=== PATIENT | female | born 1985 | race Caucasian/White ===

== ENCOUNTER 2017-12-25 00:58 | Inpatient (IN) ==
[2017-12-25] MEDS ORDERED: Zolpidem Tartrate 5 MG Tablet PO PRN (02:28)
[2017-12-25] MEDS ORDERED: Morphine Inj 4 MG/ML Vial IV.PUSH PRN (02:34)
[2017-12-25 02:43] LABS: Baso % (Auto) 0.3 % (0.0-2.0); Eos # (Auto) 0.1 th/mm3 (0.0-0.4); Eos % (Auto) 0.6 % (0.0-4.0); Hematocrit 36.5 % (35.0-46.0); Hemoglobin 12.3 gm/dL (11.6-15.3); Lymph # (Auto) 1.2 th/mm3 (1.0-4.8); Lymph % (Auto) 8.9 % (9.0-44.0); Mean Corpuscular HGB Conc 33.6 % (32.0-36.0); Mean Corpuscular Hemoglobin 29.8 pg (27.0-34.0); Mean Corpuscular Volume 88.6 fL (80.0-100.0); Mono # (Auto) 0.5 th/mm3 (0.0-0.9); Mono % (Auto) 3.4 % (0.0-8.0); Neut # (Auto) 11.9 th/mm3 (1.8-7.7); Neut % (Auto) 86.8 % (16.0-70.0); Platelet Count 159 th/mm3 (150-450); Red Blood Count 4.12 mil/mm3 (4.00-5.30); Red Cell Distribution Width 13.3 % (11.6-17.2); White Blood Count 13.7 th/mm3 (4.0-11.0)
--- NOTE | 2017-12-25 02:45 | P.HPOB ---
History of Present Illness Service: Obstetric Primary Care Physician: UNKNOWN Dr. Moseley Chief Complaint: Back pain History of Present Illness: Patient is 32-year-old white female at 23-[address] Moseley at the [facility] and presents with worsening left back pain for the last 24-36 hours, she left a urine sample with the clinic earlier today has not received results and was put on p.o. Keflex however she had nausea and vomiting she took 1 dose of the medication and then with the second dose she threw that up and has been throwing up since, she denies vaginal bleeding or leakage of fluid. Baby is active. heart tones within normal limits and initial strip reactive for 23-weeks. Patient does describe shaking chills but no fever Weeks Gestation:: 23 Para: 2 : 4 Total # of Miscarriage(s): 1 Review of Systems All other systems reviewed negative except as stated in HPI Constitutional: Reports body ache(s), Reports chills, Reports night sweats Gastrointestinal: Reports abdominal pain Genitourinary: Reports side pain Musculoskeletal: Reports back pain PMFSH - Tobacco History Tobacco Use In Past 30 Days: No Smoking Status: Never smoker - Alcohol History How Often Do You Have a Drink Containing Alcohol: Never - Substance Use History Substance History: No History of Abuse - Travel History History of Recent Travel: No Recent Travel in the [place] Within the Last 8 Weeks: No Recent Travel Out of the Country Within the Last 8 Weeks: No Medications and Allergies Active Medications: Active Medications Acetaminophen (Tylenol) 650 mg PO Q4H PRN PRN Reason: PAIN SCALE 1 TO 5 Lactated Ringer's (Lr 1000 Ml Inj) 1,000 mls @ 100 mls/hr IV.CONT .Q10H [facility] Cefazolin Sodium 2,000 mg/ (Sodium Chloride) 100 mls @ 200 mls/hr IV.SIG Q8HR [facility] Stop: 12/28/17 05:59 Morphine Sulfate (Morphine Inj) 4 mg IV.PUSH Q4H PRN PRN Reason: Acute Pain Ondansetron HCl (Zofran Inj) 4 mg IV.PUSH Q6H PRN PRN Reason: NAUSEA OR VOMITING Oxycodone/Acetaminophen (Percocet 5/325 Mg) 1 tab PO Q4H PRN PRN Reason: ABDOMINAL PAIN Sodium Chloride (Ns Flush) 2 ml IV.FLUSH PRN PRN PRN Reason: FLUSH AFTER USING IV ACCESS Sodium Chloride (Ns Flush) 2 ml IV.FLUSH BID RAFAEL Zolpidem Tartrate (Ambien) 5 mg PO HS PRN PRN Reason: SLEEP Allergies Allergy/AdvReac Type Severity Reaction Status Date / Time No Known Allergies Allergy Verified 12/25/17 02:03 Home Medications Medication Instructions Recorded Confirmed Type PNV cmb#95-ferrous fumarate-FA 1 tab PO DAILY 12/25/17 12/25/17 History [] acetaminophen [Acetaminophen Extra 2 tab PO Q6HR PRN 12/25/17 12/25/17 History Strength] cephalexin 500 mg PO QID 12/25/17 12/25/17 History pumpkin seed extract-soy germ [Azo 2 tab PO TID 12/25/17 12/25/17 History Bladder Control] Exam Vital signs: Vital Signs 12/25/17 01:21 Temperature 97.9 F Pulse Rate 109 H Respiratory Rate 18 Blood Pressure 125/76 Intake & Output 12/24/17 12/24/17 12/25/17 06:59 18:59 06:59 Weight 81.647 kg Narrative: GENERAL: Well-nourished, well-developed patient. SKIN: Warm and dry. HEAD: Normocephalic and atraumatic. EYES: No scleral icterus. No injection or drainage. ENT: No nasal drainage noted. Mucous membranes pink. Airway patent. NECK: Supple, trachea midline. No JVD. CARDIOVASCULAR: Regular rate and rhythm without murmurs, gallops, or rubs. RESPIRATORY: Breath sounds equal bilaterally. No accessory muscle use. BREASTS: Bilateral exam showed no masses , no retractions, no nipple discharge. ABDOMEN/GI: Abdomen soft, non-tender, bowel sounds present, no rebound, no guarding Gravid to [23-] weeks size Fundal Height: [23-] GENITOURINARY: Membranes: [intact ] Uterine Contractions: [none-] FHT's: 145 EXTREMITIES: No cyanosis or edema. BACK: Nontender without obvious deformity. + left CVA tenderness. NEUROLOGICAL: Awake and alert. Motor and sensory grossly within normal limits. Five out of 5 muscle strength in all muscle groups. Normal speech. Results - Labs CBC & Chem 7: 12/25/17 02:07 12/25/17 02:07 Labs: OB ED urine dip shows positive nitrites protein large blood and leukocytes Caprini VTE Risk Assessment Caprini VTE Risk Assessment: No/Low Risk (score <= 1) Caprini Risk Assessment Model: Point Value = 1 Point Value = 2 Point Value = 3 Point Value = 5 Age 41-60 Minor surgery BMI > 25 kg/m2 Swollen legs Varicose veins or History of unexplained or recurrent spontaneous Oral contraceptives or hormone replacement Sepsis (< 1 month) Serious lung disease, including pneumonia (< 1 month) Abnormal pulmonary function Acute myocardial infarction Congestive heart failure (< 1 month) History of inflammatory bowel disease Medical patient at bed rest Age 61-74 Arthroscopic surgery Major open surgery (> 45 min) Laparoscopic surgery (> 45 min) Malignancy Confined to bed (> 72 hours) Immobilizing plaster cast Central venous access Age >= 75 History of VTE Family history of VTE Factor V Leiden Prothrombin [id number] Lupus anticoagulant Anticardiolipin antibodies Elevated serum homocysteine Heparin-induced thrombocytopenia Other congenital or acquired thrombophilia Stroke (< 1 month) Elective arthroplasty Hip, pelvis, or leg fracture Acute spinal cord injury (< 1 month) Prophylaxis Regimen: Total Risk Factor Score Risk Level Prophylaxis Regimen 0-1 Low Early ambulation 2 Moderate Order ONE of the following: *Sequential Compression Device (SCD) *Heparin 5000 units SQ BID 3-4 Higher Order ONE of the following medications: *Heparin 5000 units SQ TID *Enoxaparin/Lovenox 40 mg SQ daily (WT < 150 kg, CrCl > 30 mL/min) *Enoxaparin/Lovenox 30 mg SQ daily (WT < 150 kg, CrCl > 10-29 mL/min) *Enoxaparin/Lovenox 30 mg SQ BID (WT < 150 kg, CrCl > 30 mL/min) AND/OR *Sequential Compression Device (SCD) 5 or more Highest Order ONE of the following medications: *Heparin 5000 units SQ TID (Preferred with Epidurals) *Enoxaparin/Lovenox 40 mg SQ daily (WT < 150 kg, CrCl > 30 mL/min) *Enoxaparin/Lovenox 30 mg SQ daily (WT < 150 kg, CrCl > 10-29 mL/min) *Enoxaparin/Lovenox 30 mg SQ BID (WT < 150 kg, CrCl > 30 mL/min) AND *Sequential Compression Device (SCD) Assessment and Plan - Diagnosis (1) Pyelonephritis affecting in second trimester Code(s): O23.02 - Infections of kidney in , second trimester Status: Acute (2) 23 weeks gestation of Code(s): Z3A.23 - 23 weeks gestation of Status: Acute - Plan This multiparous patient is 23-24 weeks with pyelonephritis, she has significant CVA tenderness and back pain along with positive urinalysis with chills and rigor. No other obstetric issue noted. heart tones within normal limits. Plan patient put the patient on IV Kefzol 2 gm q. 8 , IV antiemetics, IV fluid hydration. Plan 36- 48 hours IV antibiotics minimum
[2017-12-25 02:54] LABS: Bacteria,Urine Rare /hpf; Bilirubin,Urine Negative (Negative); Clarity,Urine Hazy (Clear); Color,Urine Amber (Yellw/Straw); Glucose,Urine (UA) Negative (Negative); Leukocyte Esterase,Urine Trace (Negative); Mucus,Urine Few /lpf (Occasional); Nitrite,Urine Positive (Negative); Specific Gravity,Urine 1.011 (1.002-1.035); Squamous Epithelial Cell,Urine 2 /hpf (0-5); Urobilinogen,Urine 4 or Greater mg/dL (Less than 2)
[2017-12-25] MEDS: Acetaminophen 325 MG Tablet PO PRN ×2 (03:01→15:10)
[2017-12-25 03:11] LABS: Alkaline Phosphatase 78 U/L (45-117); Total Protein 7.5 g/dL (6.4-8.2)
[2017-12-25 03:17] LABS: Alanine Aminotransferase 30 U/L (10-53); Albumin 3.1 g/dL (3.4-5.0); Anion Gap 11 meq/L (5-15); Aspartate Aminotransferase 26 U/L (15-37); Blood Urea Nitrogen 12 mg/dL (7-18); Calcium 9.1 mg/dL (8.5-10.1); Carbon Dioxide 24.9 meq/L (21.0-32.0); Chloride 104 meq/L (98-107); Glomerular Filtration Rate 79 mL/min (>89); Glucose,Random 97 mg/dL (74-106); Sodium 140 meq/L (136-145)
[2017-12-25 03:20] LABS: Potassium 3.9 meq/L (3.5-5.1)
[2017-12-25] MEDS: ceFAZolin 2 GM Premix Inj 2 GM/50 ML PIGGYBACK IV.SIG SCH ×3 (05:38→21:48)
[2017-12-25] MEDS ORDERED: ceFAZolin Inj 2,000 MG in Sodium Chlor 0.9% Inj 80 ML IV.SIG SCH (06:00)
--- NOTE | 2017-12-25 08:51 | P.OBANTE ---
Subjective Interval History: Had nausea overnight. Now feels better and requesting diet. She does not feel like she had a fever overnight since admission. Back pain is improved. Good fm, no vb or ctx/lof. Objective Vital Signs and I&O: Vital Signs 12/25/17 01:21 12/25/17 03:05 12/25/17 05:00 Temperature 97.9 F Pulse Rate 109 H 100 H Respiratory Rate 18 Blood Pressure 125/76 123/80 12/25/17 05:39 12/25/17 05:47 12/25/17 06:44 Temperature 98.7 F Pulse Rate 111 H Respiratory Rate 18 Blood Pressure 99/53 L 12/25/17 07:49 Temperature 98.8 F Pulse Rate 102 H Respiratory Rate 16 Blood Pressure 103/57 L Intake & Output 12/24/17 12/25/17 12/25/17 18:59 06:59 18:59 Intake Total 1050 / 1050 Balance 1050 / 1050 Weight 81.647 kg Intake: IV 1050 / 1050 LR 1000 mL Inj 1,000 ML @ 100 1000 / 1000 mls/hr IV.CONT .Q10H [facility] Rx#: [id number] Ancef 2 GM Premix Inj 2 gm In 50 / 50 50 ml @ 100 mls/hr IV.SIG Q8H [facility]EL Rx#:[id number] Lab and Micro Results: Laboratory Results - last 24 hr 12/25/17 12/25/17 12/25/17 01:35 02:07 02:07 WBC 13.7 H RBC 4.12 Hgb 12.3 Hct 36.5 MCV 88.6 MCH 29.8 MCHC 33.6 RDW 13.3 Plt Count 159 MPV 8.0 Neut % (Auto) 86.8 H Lymph % (Auto) 8.9 L Lewis % (Auto) 3.4 Eos % (Auto) 0.6 Baso % (Auto) 0.3 Neut # (Auto) 11.9 H Lymph # (Auto) 1.2 Lewis # (Auto) 0.5 Eos # (Auto) 0.1 Baso # (Auto) 0.0 WBC Differential . Differential Comment Auto diff final Sodium 140 Potassium 3.9 Chloride 104 Carbon Dioxide 24.9 Anion Gap 11 BUN 12 Creatinine 0.83 Estimated GFR 79 L POC Glucose Random Glucose 97 Calcium 9.1 Total Bilirubin 0.4 AST 26 ALT 30 Alkaline Phosphatase 78 Total Protein 7.5 Albumin 3.1 L Urine Color Marjorie Urine Clarity Hazy H Urine pH 7.0 Ur Specific [place] 1.011 Urine Protein 30 H Urine Glucose (UA) Negative Urine Ketones Trace H Urine Occult Blood Large H Urine Nitrate Positive H Urine Bilirubin Negative Urine Urobilinogen 4 or greater Ur Leukocyte Esterase Trace H Urine RBC Urine WBC 41 H Ur Squamous Epith Cells 2 Urine Bacteria Rare H Urine Mucus Few H Micro UA Comment Culture indicated Ur Microscopic Review Not Reportable Urine Culture Comments Culture indicated 12/25/17 07:16 WBC RBC Hgb Hct MCV MCH MCHC RDW Plt Count MPV Neut % (Auto) Lymph % (Auto) Lewis % (Auto) Eos % (Auto) Baso % (Auto) Neut # (Auto) Lymph # (Auto) Lewis # (Auto) Eos # (Auto) Baso # (Auto) WBC Differential Differential Comment Sodium Potassium Chloride Carbon Dioxide Anion Gap BUN Creatinine Estimated GFR POC Glucose 114 H Random Glucose Calcium Total Bilirubin AST ALT Alkaline Phosphatase Total Protein Albumin Urine Color Urine Clarity Urine pH Ur Specific [place] Urine Protein Urine Glucose (UA) Urine Ketones Urine Occult Blood Urine Nitrate Urine Bilirubin Urine Urobilinogen Ur Leukocyte Esterase Urine RBC Urine WBC Ur Squamous Epith Cells Urine Bacteria Urine Mucus Micro UA Comment Ur Microscopic Review Urine Culture Comments Physical Exam: GENERAL: Well-nourished, well-developed patient. CARDIOVASCULAR: Regular rate and rhythm without murmurs, gallops, or rubs. RESPIRATORY: Breath sounds equal bilaterally. No accessory muscle use. ABDOMEN/GI: Abdomen soft, non-tender. Fundus: [-] Min left cva tenderness GENITOURINARY: External Genitalia: defer FHT's:+fcs EXTREMITIES: No cyanosis or edema, non-tender, without signs of DVT. Assessment and Plan - Plan 32 yo wiht iup at 24w5d with pyelonephritis, admitted with significant CVA tenderness and back pain along with positive urinalysis with chills and rigor, maternal tachycardia. Back pain improving, no documented fevers. She is presently on IV Kefzol 2 gm q. 8 , IV antiemetics, IV fluid hydration. Will await UCx for further abx rec. Had GBS in urine in October. GDM- diet controlled
[2017-12-25 19:08] VITALS: RESP 18
[2017-12-26 06:45] VITALS: TEMP 98
[2017-12-26] MEDS: ceFAZolin 2 GM Premix Inj 2 GM/50 ML PIGGYBACK IV.SIG SCH (06:45)
--- NOTE | 2017-12-26 07:02 | P.OBANTE ---
Subjective Interval History: feeling well, afebrile over past 24h, no longer having nausea or flank pain, tolerating diet, desires discharge Antepartum ROS: Reports: New complaints, movement normal Denies: Loss of fluid, Vaginal bleeding, Contractions Objective Vital Signs and I&O: Vital Signs 12/25/17 07:49 12/25/17 10:59 12/25/17 11:00 Temperature 98.8 F 98.4 F Pulse Rate 102 H 101 H Respiratory Rate 16 18 Blood Pressure 103/57 L 108/64 12/25/17 14:59 12/25/17 15:00 12/25/17 19:00 Temperature 98.1 F 98.3 F Pulse Rate 94 H 95 H Respiratory Rate 16 18 Blood Pressure 109/59 L 104/59 L 12/25/17 21:00 12/25/17 23:00 12/25/17 23:02 Temperature 98.5 F Pulse Rate 89 Respiratory Rate 18 18 18 Blood Pressure 108/59 L 12/26/17 03:00 12/26/17 04:53 12/26/17 06:44 Temperature 98.0 F Pulse Rate 103 H Respiratory Rate 18 18 18 Blood Pressure 117/72 Intake & Output 12/25/17 12/25/17 12/26/17 06:59 18:59 06:59 Intake Total 1050 / 1050 2049 Balance 1050 / 1050 2049 Weight 81.647 kg Intake: IV 1050 / 1050 2049 LR 1000 mL Inj 1,000 ML @ 100 1000 / 1000 2000 / 2000 2000 / 2000 mls/hr IV.CONT .Q10H [facility] Rx#: [id number] Ancef 2 GM Premix Inj 2 gm In 50 / 50 50 / 50 50 / 50 50 ml @ 100 mls/hr IV.SIG Q8H [facility]EL Rx#:[id number] Lab and Micro Results: Laboratory Results - last 24 hr 12/25/17 12/25/17 12/25/17 07:16 11:28 15:05 POC Glucose 114 H 140 H 115 H 12/25/17 19:05 POC Glucose 101 Physical Exam: GENERAL: Well-nourished, well-developed patient. CARDIOVASCULAR: Regular rate and rhythm without murmurs, gallops, or rubs. RESPIRATORY: Breath sounds equal bilaterally. No accessory muscle use. ABDOMEN/GI: Abdomen soft, non-tender. Fundus: c/w dates GENITOURINARY: External Genitalia: intact and normal in appearance deferred FHT's: +FHTs 130s EXTREMITIES: No cyanosis or edema, non-tender, without signs of DVT. Back exam: no CVA tenderness bilaterally Assessment and Plan - Diagnosis (1) Pyelonephritis affecting in second trimester Code(s): O23.02 - Infections of kidney in , second trimester Status: Acute (2) 23 weeks gestation of Code(s): Z3A.23 - 23 weeks gestation of Status: Acute - Plan 32 yo with jaeger male iup at 23w6d admit for pyelonephritis 1) pyelonephritis: s/p >24h of IV antibiotics, afebrile, symptoms resolved; UCx pending; pt has Rx for Keflex, continue that for now, will call pt when culture results available; discharge counseling reviewed, has office f/u with Dr. Moseley 1 week 2) GDM - diet controlled, continue current plan of care 3) status: reassuring tracing while inpt 4) dispo: d/c to home Discharge Planning: today
--- NOTE | 2017-12-26 07:06 | P.DS ---
Date of admission: 12/25/17 02:28 Primary care physician: UNKNOWN Attending physician on discharge: Shira Aldrich Anticipated date of discharge: 12/26/17 Brief History from admission: Patient is 32-year-old white female at 23-[address] Moseley at the [facility] and presents with worsening left back pain for the last 24-36 hours, she left a urine sample with the clinic earlier today has not received results and was put on p.o. Keflex however she had nausea and vomiting she took 1 dose of the medication and then with the second dose she threw that up and has been throwing up since, she denies vaginal bleeding or leakage of fluid. Baby is active. heart tones within normal limits and initial strip reactive for 23-weeks. Patient does describe shaking chills but no fever Patient update on day of discharge: Pt did well on IV antibiotics with resolution of pain, CVA tenderness, nausea, and tachycardia. Once afebrile and normal vitals for 24h with resolution of CVA tenderness decision for transition to oral antibiotic therapy and discharge to home. DS: Diagnosis - Discharge Diagnosis (1) Pyelonephritis affecting in second trimester Status: Acute (2) 23 weeks gestation of Status: Acute DS: Summary Hospital Course: see prior - Time Spent with Patient Total time spent providing and/or coordinating discharge services: Greater than 30 minutes - Quality: AMI Clinical Trial Participant: No Exam Vital signs: Vital Signs 12/25/17 07:49 12/25/17 10:59 12/25/17 11:00 Temperature 98.8 F 98.4 F Pulse Rate 102 H 101 H Respiratory Rate 16 18 Blood Pressure 103/57 L 108/64 12/25/17 14:59 12/25/17 15:00 12/25/17 19:00 Temperature 98.1 F 98.3 F Pulse Rate 94 H 95 H Respiratory Rate 16 18 Blood Pressure 109/59 L 104/59 L 12/25/17 21:00 12/25/17 23:00 12/25/17 23:02 Temperature 98.5 F Pulse Rate 89 Respiratory Rate 18 18 18 Blood Pressure 108/59 L 12/26/17 03:00 12/26/17 04:53 12/26/17 06:44 Temperature 98.0 F Pulse Rate 103 H Respiratory Rate 18 18 18 Blood Pressure 117/72 Intake & Output 12/25/17 12/26/17 12/26/17 18:59 06:59 18:59 Intake Total 2049 Balance 2049 Intake: IV 2049 LR 1000 mL Inj 1,000 ML @ 100 2000 / 2000 2000 / 2000 mls/hr IV.CONT .Q10H [facility] Rx#: [id number] Ancef 2 GM Premix Inj 2 gm In 50 / 50 50 / 50 50 ml @ 100 mls/hr IV.SIG Q8H [facility]EL Rx#:[id number] - Constitutional no acute distress - Routine HEENT Exam Head: Present: normocephalic, atraumatic Eye: Present: EOMI ENT: Present: mucous membranes moist - Routine Neck Exam Present: supple, full ROM - Routine Chest/Breast/Axilla Exam Chest wall: Absent: tenderness, mass - Routine Respiratory Exam Absent: accessory muscle use, decreased breath sounds - Routine Cardiovascular Exam Present: RRR. Absent: bradycardia - Routine Abdominal Exam Present: soft. Absent: guarding - Routine Extremities Exam Absent: cyanosis, edema - Routine Skin Exam Present: intact. Absent: erythema - Routine Neurological Exam Present: alert, oriented X3 Results Procedures completed during hospitalization: monitoring, IV hydration, IV antibiotic therapy Pending studies at discharge: urine culture Labs on day of discharge: Labs from last 24 hours 12/25/17 12/25/17 12/25/17 19:05 15:05 11:28 POC Glucose 101 115 H 140 H 12/25/17 07:16 POC Glucose 114 H Discharge Plan - Discharge Disposition Patient Disposition: 01 Discharge Home - Discharge Condition Condition: Good - Discharge Order Discharge Orders: Discharge Order (Routine); Ordered 12/26/17 Ordered By: Shira Aldrich - Discharge Details Anticipated Discharge Date: 12/26/17 - Physicians Team Primary Care Provider: UNKNOWN, Attending Provider: Sushil Kaiser
[2017-12-26 07:30] VITALS: BP 110/76; PULSE 90
== END 2017-12-26 08:15 | disposition home or self-care (01) ==
LOC: H2E 00:58 → HOBED 00:58 → H2E 02:20
PROVIDERS: ADMIT Obstetrics & Gynecology Maternal & Fetal Medicine; ATTEND Obstetrics & Gynecology Maternal & Fetal Medicine

== ENCOUNTER 2018-04-10 22:21 | Inpatient (IN) ==
[2018-04-10] MEDS ORDERED: Sodium Chlor 0.9% Inj 500 ML IV.SIG PRN (22:58)
[2018-04-10] MEDS ORDERED: Sod Chloride 0.9% Inj 1,000 ML IV.CONT PRN (22:58)
[2018-04-10] MEDS ORDERED: Naloxone Inj 0.4 MG/ML Vial IV.PUSH PRN (23:02)
[2018-04-10] MEDS ORDERED: Oxytocin 30 Units/500ml Premix 30 UNITS/500 ML BAG IV.SIG ONE (23:02)
[2018-04-10] MEDS ORDERED: Penicillin G Potassium Inj 5,000,000 UNIT in Sodium Chloride 0.9% Inj 100 ML IV.SIG ONE (23:02)
[2018-04-10] MEDS ORDERED: fentaNYL Citrate Inj 100 MCG/2 ML Ampul IV.PUSH PRN ×2 (23:02)
[2018-04-10] MEDS ORDERED: Citric Acid/Sodium Citrate Liq 30 ML UDC PO SCH (23:15)
[2018-04-10] MEDS ORDERED: Penicillin G Potassium Inj 2,500,000 UNIT in Sodium Chlor 0.9% Inj 100 ML IV.SIG SCH (23:45)
[2018-04-10 23:53] LABS: Baso % (Auto) 0.5 % (0.0-2.0); Eos # (Auto) 0.2 th/mm3 (0.0-0.4); Eos % (Auto) 1.8 % (0.0-4.0); Hemoglobin 13.1 gm/dL (11.6-15.3); Lymph # (Auto) 2.4 th/mm3 (1.0-4.8); Mean Corpuscular HGB Conc 34.6 % (32.0-36.0); Mean Corpuscular Hemoglobin 29.7 pg (27.0-34.0); Mean Platelet Volume 8.5 fL (7.0-11.0); Mono # (Auto) 0.6 th/mm3 (0.0-0.9); Mono % (Auto) 7.1 % (0.0-8.0); Neut # (Auto) 5.9 th/mm3 (1.8-7.7); Neut % (Auto) 64.6 % (16.0-70.0); Platelet Count 161 th/mm3 (150-450); Red Blood Count 4.42 mil/mm3 (4.00-5.30); White Blood Count 9.2 th/mm3 (4.0-11.0)
[2018-04-11 00:01] LABS: Amorphous Sediment,Urine Occasional /hpf; Bilirubin,Urine Negative (Negative); Clarity,Urine Hazy (Clear); Color,Urine Yellow (Yellw/Straw); Glucose,Urine (UA) Negative (Negative); Leukocyte Esterase,Urine Trace (Negative); Mucus,Urine Few /lpf (Occasional); Nitrite,Urine Negative (Negative); Specific Gravity,Urine 1.011 (1.002-1.035); Squamous Epithelial Cell,Urine <1 /hpf (0-5)
--- NOTE | 2018-04-11 08:39 | MH ---
cc: Cirstine Moseley MD DATE OF ADMISSION: 04/10/2018 HISTORY OF PRESENT ILLNESS: She is 32 years old, 3, para 2-0-0-2, intrauterine at 39 weeks for induction of labor due to history of gestational diabetes type A1 and -induced hypertension. care has been with [facility] [employer]. Fingersticks have been controlled with diet. She had group B positive strep in the urine culture. Blood type O positive. She declined genetic testing. She had a normal anatomy ultrasound in the second trimester, fundal placenta. PAST OBSTETRICAL HISTORY: Significant for 2 vaginal deliveries. PAST SITE WORKER HISTORY: Unremarkable. She had a normal Pap smear in 09/2017. PAST MEDICAL HISTORY: She has gestational diabetes, controlled with diet. She had pyelonephritis in this , has been taking Macrobid suppression. PAST SURGICAL HISTORY: She denies. SOCIAL HISTORY: She has a history of alcohol use prior to the . MEDICATIONS: 1. Macrobid 100 mg a day, suppression. 2. vitamins. ALLERGIES: SHE HAS NO KNOWN DRUG ALLERGIES. VITAL SIGNS: Blood pressure is 140/80. HEAD, CHEST, HEART, LUNG: Exams are within normal limits. ABDOMEN: Soft, nontender, gravid. PELVIC: She is 1-2 cm, 50% effaced, -2 station. EXTREMITIES: No edema, cyanosis, or clubbing. ASSESSMENT AND PLAN: She is 32 years old, 3, para 2, intrauterine at 39 weeks, induction of labor for gestational diabetes. Group B strep positive in the urine. She will be admitted for Cervidil ripening. Penicillin prophylaxis. Anticipate normal vaginal delivery. MD ROHIT Mathis/cedric , 08:22 AM , 08:27 AM
[2018-04-11] MEDS ORDERED: Penicillin G Potassium Inj 5,000,000 UNIT in Sodium Chloride 0.9% Inj 100 ML IV.SIG ONE (09:00)
[2018-04-11] MEDS ORDERED: Oxytocin 30 Units/500ml Premix 30 UNITS/500 ML BAG IV.SIG PRN (09:05)
[2018-04-11] MEDS ORDERED: fentaNYL 2MCG-Bupiv 0.125% Epi 150 ML EPIDURAL ONE (10:26)
[2018-04-11] MEDS ORDERED: Lidocaaine 1.5%/Epinephrine 1:200,000 PF Inj 5 ML Amp ONE (11:03)
[2018-04-11] MEDS ORDERED: Lidocaine PF 1% Inj 5 ML Vial ONE (11:03)
[2018-04-11] MEDS ORDERED: fentaNYL Citrate Inj 100 MCG/2 ML Ampul EPIDURAL ONE (11:17)
[2018-04-11] MEDS ORDERED: fentaNYL 2MCG-Bupiv 0.125% Epi 150 ML EPIDURAL PRN (11:17)
[2018-04-11] MEDS ORDERED: Naloxone Inj 0.4 MG/ML Vial IV.PUSH PRN (13:04)
[2018-04-11] MEDS ORDERED: Acetaminophen 325 MG Tablet PO PRN (13:04)
[2018-04-11] MEDS ORDERED: Zolpidem Tartrate 5 MG Tablet PO PRN (13:04)
[2018-04-11] MEDS ORDERED: Benzocaine 20% Top Spray 60 ML Can TOPICAL PRN (13:04)
[2018-04-11] MEDS ORDERED: Witch Hazel 50%/Glyderin 12.5% 40 Pad Jar RECTAL PRN (13:04)
[2018-04-11] MEDS ORDERED: Oxytocin 30 Units/500ml Premix 30 UNITS/500 ML BAG IV.CONT PRN (13:04)
[2018-04-11] MEDS ORDERED: Bisacodyl 10 MG Supp RECTAL PRN (13:04)
--- NOTE | 2018-04-11 13:04 | P.OBDELI ---
Weeks Gestation: 39 Patient Started Active Labor: Yes Active Labor Start Date: 04/11/18 Medical Induction of Labor: Yes Medical Induction Start Date: 04/10/18 Artificial Rupture of Membrane: Yes Artificial ROM Date: 04/11/18 Anesthesia: Epidural Episiotomy: none Vaginal Delivery: Normal Presentation: Occiput anterior Nuchal Cord: None Delayed Cord Clamping (45 sec): Yes Placenta: Spontaneous delivery Laceration: 1 deg Repair: Chromic interrupted Estimated blood loss (mL): 250 Infant: Male ( 8/9)
[2018-04-11] MEDS: Penicillin G Potassium Inj 2,500,000 UNIT in Sodium Chlor 0.9% Inj 100 ML IV.SIG SCH ×3 (15:40→22:39)
[2018-04-11] MEDS ORDERED: Measles/Mumps/Rubella Vaccine Inj 0.5 ML Vial SQ ONE (16:00)
[2018-04-11] MEDS ORDERED: Diphtheria/Tetanus/Pertussis Vaccine Inj 0.5 ML Syringe IM ONE (16:00)
[2018-04-11] MEDS: Senna/Docusate Sodium 8.6/50 MG Tablet PO SCH (20:25)
[2018-04-12] MEDS: Penicillin G Potassium Inj 2,500,000 UNIT in Sodium Chlor 0.9% Inj 100 ML IV.SIG SCH ×4 (04:17→20:20)
--- NOTE | 2018-04-12 05:22 | P.PNOB ---
Subjective Post day: 1 Interval history: doing well, VB < menses, pain controlled, Objective Vital Signs/I&O: Vital Signs 04/11/18 07:13 04/11/18 07:15 04/11/18 09:19 Temperature 98.6 F Pulse Rate 95 H 95 H Respiratory Rate 18 18 Blood Pressure 112/76 124/84 04/11/18 09:55 04/11/18 10:28 04/11/18 10:29 Temperature 97.7 F Pulse Rate 108 H 94 H Respiratory Rate 18 18 Blood Pressure 132/83 134/87 04/11/18 10:30 04/11/18 10:40 04/11/18 10:55 Temperature Pulse Rate 89 97 H 101 H Respiratory Rate Blood Pressure 127/91 H 118/78 04/11/18 11:05 04/11/18 11:10 04/11/18 11:15 Temperature Pulse Rate 109 H 98 H 104 H Respiratory Rate Blood Pressure 122/80 122/74 117/79 04/11/18 11:19 04/11/18 11:20 04/11/18 11:25 Temperature 98.4 F Pulse Rate 107 H 113 H Respiratory Rate 18 Blood Pressure 126/76 04/11/18 11:30 04/11/18 11:31 04/11/18 11:45 Temperature Pulse Rate 111 H 109 H 105 H Respiratory Rate Blood Pressure 76/57 L 106/61 04/11/18 11:55 04/11/18 12:01 04/11/18 12:05 Temperature Pulse Rate 106 H 101 H 109 H Respiratory Rate 18 Blood Pressure 103/60 04/11/18 12:10 04/11/18 12:15 04/11/18 12:30 Temperature Pulse Rate 111 H 100 H 142 H Respiratory Rate Blood Pressure 97/68 L 117/77 04/11/18 13:06 04/11/18 13:08 04/11/18 13:24 Temperature Pulse Rate 116 H 121 H Respiratory Rate 18 18 Blood Pressure 94/73 L 108/94 H 04/11/18 13:38 04/11/18 13:57 04/11/18 14:34 Temperature 98.1 F Pulse Rate 111 H 115 H 18 L Respiratory Rate 16 18 18 Blood Pressure 118/80 116/72 120/76 04/11/18 14:35 04/11/18 19:30 Temperature 98.5 F Pulse Rate 98 H 90 Respiratory Rate 18 Blood Pressure 115/71 Intake & Output 04/11/18 04/11/18 04/12/18 06:59 18:59 06:59 Intake Total 1999 Balance 1999 Weight 83.461 kg Intake: IV 1999 LR 1000 mL Inj 1,000 ML @ 125 1999 mls/hr IV.CONT .Q8H [facility] Rx#: [id number] Result Diagrams: 04/10/18 23:25 Objective Remarks: GENERAL: Well-nourished, well-developed patient. CARDIOVASCULAR: Regular rate and rhythm without murmurs, gallops, or rubs. RESPIRATORY: Breath sounds equal bilaterally. No accessory muscle use. ABDOMEN/GI: Abdomen soft, non-tender. Fundus: Firm, non-tender at umbilicus. GENITOURINARY: Light to moderate bleeding. EXTREMITIES: No cyanosis or edema, non-tender, without signs of DVT. Medications and IVs: Active Medications Acetaminophen (Tylenol) 650 mg PO Q4H PRN PRN Reason: PAIN SCALE 1 TO 2 Al Hydroxide/Mg Hydroxide (Milk Of Magnesia Liq) 30 ml PO Q12H PRN PRN Reason: Mild Constipation Benzocaine (Americaine 20% Top Myton) 1 spray TOPICAL Q4H PRN PRN Reason: For Perineum Discomfort Last Admin: 04/11/18 20:25 Dose: 1 spray Bisacodyl (Dulcolax Supp) 10 mg RECTAL DAILY PRN PRN Reason: SEVERE CONSITIPN PO INTOLERABL Citric Acid/Sodium Citrate (Sodium Citrate/Citric Acid Liq) 30 ml PO [employer] [facility] Stop: 04/14/18 23:14 Ephedrine Sulfate (Ephedrine/Ns Syringe) 10 mg IV.PUSH UNSCH PRN PRN Reason: SEE LABEL COMMENTS Stop: 04/12/18 11:18 Last Admin: 04/11/18 11:31 Dose: 10 mg Fentanyl Citrate (Fentanyl Inj) 50 mcg IV.PUSH Q1H PRN PRN Reason: Pain Scale 3 - 5 Fentanyl Citrate (Fentanyl Inj) 100 mcg IV.PUSH Q1H PRN PRN Reason: PAIN SCALE 6 TO 10 Lactated Ringer's (Lr 1000 Ml Inj) 1,000 mls @ 3,000 mls/hr IV.SIG UNSCH PRN PRN Reason: compromise or epidural Sodium Chloride (Ns Inj) 500 mls @ 1,000 mls/hr IV.SIG UNSCH PRN PRN Reason: SEE LABEL COMMENTS Sodium Chloride (Ns Inj) 1,000 mls @ 100 mls/hr IV.CONT .Q10H PRN PRN Reason: SEE LABEL COMMENTS Lactated Ringer's (Lr 1000 Ml Inj) 1,000 mls @ 125 mls/hr IV.CONT .Q8H [facility] Last Admin: 04/11/18 22:40 Dose: Not Given Penicillin G Potassium 2,500, (000 unit/ Sodium Chloride) 100 mls @ 200 mls/hr IV.SIG Q4H [facility] Last Admin: 04/12/18 04:17 Dose: Not Given Oxytocin (Pitocin 30 Units/Ns 500 Ml Premix) 30 units in 500 mls @ 2 mls/hr IV.SIG TITRATE PRN; Protocol PRN Reason: For induction of labor Last Admin: 04/11/18 09:15 Dose: 2 milliunit/min, 2 mls/hr Fentanyl/Bupivacaine/Sodium Chlor (Fentanyl 2 Mcg-Bupiv 0.125% Epi) 150 mls @ 10 mls/hr EPIDURAL PRN PRN PRN Reason: for Labor Pain Last Admin: 04/11/18 10:52 Dose: 10 mls/hr Oxytocin (Pitocin 30 Units/Ns 500 Ml Premix) 30 units in 500 mls @ 100 mls/hr IV.CONT UNSCH PRN PRN Reason: Heavy bleeding Ibuprofen (Motrin) 800 mg PO Q8H PRN PRN Reason: For Cramping Last Admin: 04/12/18 04:18 Dose: 800 mg Lactulose (Lactulose Liq) 30 ml PO DAILY PRN PRN Reason: SEVERE CONSITIPATION Lidocaine HCl (Xylocaine 1% Inj) 0.1 ml I-DERMAL PRN PRN PRN Reason: For IV start Stop: 04/13/18 23:01 Lidocaine HCl (Xylocaine 1% Inj) 10 ml INFILTRATN PRN PRN PRN Reason: For episiotomy repair Stop: 04/12/18 23:01 Mineral Oil (Muri-Lube Oil) 10 ml TOPICAL PRN PRN PRN Reason: PRN perineal massage Miscellaneous Information (Misc Information) 1 each OTHER UNSCH PRN PRN Reason: SEE LABEL COMMENTS Stop: 04/12/18 11:18 Miscellaneous Information (Misc Information) 1 each OTHER UNSCH PRN PRN Reason: SEE LABEL COMMENTS Stop: 04/12/18 11:18 Naloxone HCl (Narcan Inj) 0.1 mg IV.PUSH Q2M PRN PRN Reason: for opiate reversal Naloxone HCl (Narcan Inj) 0.1 mg IV.PUSH Q2M PRN PRN Reason: for opiate reversal Ondansetron HCl (Zofran Inj) 4 mg IV.PUSH Q6H PRN PRN Reason: NAUSEA OR VOMITING Ondansetron HCl (Zofran Odt) 4 mg PO Q6H PRN PRN Reason: NAUSEA OR VOMITING Vit/Calcium/Iron/Folic Ac (Stuartnatal Plus 3) 1 tab PO DAILY [facility] Senna/Docusate Sodium (Carolyn-Colace) 1 tab PO BID [facility] Last Admin: 04/11/18 20:25 Dose: 1 tab Sennosides (Senokot) 17.2 mg PO Q12H PRN PRN Reason: Moderate Constipation Sodium Chloride (Ns Flush) 2 ml IV.FLUSH BID [facility] Last Admin: 04/11/18 20:24 Dose: 2 ml Sodium Chloride (Ns Flush) 2 ml IV.FLUSH PRN PRN PRN Reason: FLUSH AFTER USING IV ACCESS Witch Leonila/Glycerin (Tucks Pads) 1 applicatio RECTAL QID PRN PRN Reason: HEMORRHOIDS Last Admin: 04/11/18 20:24 Dose: 1 applicatio Zolpidem Tartrate (Ambien) 10 mg PO HS PRN PRN Reason: FOR SLEEP Zolpidem Tartrate (Ambien) 5 mg PO HS PRN PRN Reason: SLEEP Assessment and Plan - Plan 32 yo s/p at 39w0d 1. PPD #1: AF, VSS, continue routine care, anticipate d/c home in next 24hrs - male , discussed circumcision,
[2018-04-12] MEDS ORDERED: Prenatal Vit/Ca/Iron/Folic Acid Tablet PO SCH (09:00)
[2018-04-12] MEDS: Senna/Docusate Sodium 8.6/50 MG Tablet PO SCH ×2 (10:47→21:00)
[2018-04-12 20:36] VITALS: RESP 18
[2018-04-13] MEDS: Penicillin G Potassium Inj 2,500,000 UNIT in Sodium Chlor 0.9% Inj 100 ML IV.SIG SCH ×3 (02:47→08:26)
[2018-04-13 08:25] VITALS: BP 116/78; PULSE 94; TEMP 97.7
[2018-04-13] MEDS: Senna/Docusate Sodium 8.6/50 MG Tablet PO SCH (08:26)
--- NOTE | 2018-04-13 09:45 | P.PNOB ---
Subjective Post day: 2 Interval history: no changes from yesterday, ready for d/c home Objective Vital Signs/I&O: Vital Signs 04/12/18 20:00 04/13/18 08:00 Temperature 98.1 F 97.7 F Pulse Rate 93 H 94 H Respiratory Rate 18 18 Blood Pressure 121/71 116/78 Result Diagrams: 04/10/18 23:25 Objective Remarks: GENERAL: Well-nourished, well-developed patient. CARDIOVASCULAR: Regular rate and rhythm without murmurs, gallops, or rubs. RESPIRATORY: Breath sounds equal bilaterally. No accessory muscle use. ABDOMEN/GI: Abdomen soft, non-tender. Fundus: Firm, non-tender at umbilicus. GENITOURINARY: Light to moderate bleeding. EXTREMITIES: No cyanosis or edema, non-tender, without signs of DVT. Medications and IVs: Active Medications Acetaminophen (Tylenol) 650 mg PO Q4H PRN PRN Reason: PAIN SCALE 1 TO 2 Al Hydroxide/Mg Hydroxide (Milk Of Magnesia Liq) 30 ml PO Q12H PRN PRN Reason: Mild Constipation Benzocaine (Americaine 20% Top [place]) 1 spray TOPICAL Q4H PRN PRN Reason: For Perineum Discomfort Last Admin: 04/11/18 20:25 Dose: 1 spray Bisacodyl (Dulcolax Supp) 10 mg RECTAL DAILY PRN PRN Reason: SEVERE CONSITIPN PO INTOLERABL Citric Acid/Sodium Citrate (Sodium Citrate/Citric Acid Liq) 30 ml PO SKI GUIDE [facility] Stop: 04/14/18 23:14 Fentanyl Citrate (Fentanyl Inj) 50 mcg IV.PUSH Q1H PRN PRN Reason: Pain Scale 3 - 5 Fentanyl Citrate (Fentanyl Inj) 100 mcg IV.PUSH Q1H PRN PRN Reason: PAIN SCALE 6 TO 10 Lactated Ringer's (Lr 1000 Ml Inj) 1,000 mls @ 3,000 mls/hr IV.SIG UNSCH PRN PRN Reason: compromise or epidural Sodium Chloride (Ns Inj) 500 mls @ 1,000 mls/hr IV.SIG UNSCH PRN PRN Reason: SEE LABEL COMMENTS Sodium Chloride (Ns Inj) 1,000 mls @ 100 mls/hr IV.CONT .Q10H PRN PRN Reason: SEE LABEL COMMENTS Lactated Ringer's (Lr 1000 Ml Inj) 1,000 mls @ 125 mls/hr IV.CONT .Q8H [facility] Last Admin: 04/13/18 07:17 Dose: Not Given Penicillin G Potassium 2,500, (000 unit/ Sodium Chloride) 100 mls @ 200 mls/hr IV.SIG Q4H [facility] Last Admin: 04/13/18 08:26 Dose: Not Given Oxytocin (Pitocin 30 Units/Ns 500 Ml Premix) 30 units in 500 mls @ 2 mls/hr IV.SIG TITRATE PRN; Protocol PRN Reason: For induction of labor Last Admin: 04/11/18 09:15 Dose: 2 milliunit/min, 2 mls/hr Fentanyl/Bupivacaine/Sodium Chlor (Fentanyl 2 Mcg-Bupiv 0.125% Epi) 150 mls @ 10 mls/hr EPIDURAL PRN PRN PRN Reason: for Labor Pain Last Admin: 04/11/18 10:52 Dose: 10 mls/hr Oxytocin (Pitocin 30 Units/Ns 500 Ml Premix) 30 units in 500 mls @ 100 mls/hr IV.CONT UNSCH PRN PRN Reason: Heavy bleeding Ibuprofen (Motrin) 800 mg PO Q8H PRN PRN Reason: For Cramping Last Admin: 04/13/18 05:48 Dose: 800 mg Lactulose (Lactulose Liq) 30 ml PO DAILY PRN PRN Reason: SEVERE CONSITIPATION Lidocaine HCl (Xylocaine 1% Inj) 0.1 ml I-DERMAL PRN PRN PRN Reason: For IV start Stop: 04/13/18 23:01 Mineral Oil (Muri-Lube Oil) 10 ml TOPICAL PRN PRN PRN Reason: PRN perineal massage Naloxone HCl (Narcan Inj) 0.1 mg IV.PUSH Q2M PRN PRN Reason: for opiate reversal Naloxone HCl (Narcan Inj) 0.1 mg IV.PUSH Q2M PRN PRN Reason: for opiate reversal Ondansetron HCl (Zofran Inj) 4 mg IV.PUSH Q6H PRN PRN Reason: NAUSEA OR VOMITING Ondansetron HCl (Zofran Odt) 4 mg PO Q6H PRN PRN Reason: NAUSEA OR VOMITING Vit/Calcium/Iron/Folic Ac (Stuartnatal Plus 3) 1 tab PO DAILY [facility] Last Admin: 04/12/18 10:47 Dose: 1 tab Senna/Docusate Sodium (Carolyn-Colace) 1 tab PO BID [facility] Last Admin: 04/13/18 08:26 Dose: Not Given Sennosides (Senokot) 17.2 mg PO Q12H PRN PRN Reason: Moderate Constipation Sodium Chloride (Ns Flush) 2 ml IV.FLUSH BID [facility] Last Admin: 04/13/18 08:25 Dose: Not Given Sodium Chloride (Ns Flush) 2 ml IV.FLUSH PRN PRN PRN Reason: FLUSH AFTER USING IV ACCESS Witch Leonila/Glycerin (Tucks Pads) 1 applicatio RECTAL QID PRN PRN Reason: HEMORRHOIDS Last Admin: 04/11/18 20:24 Dose: 1 applicatio Zolpidem Tartrate (Ambien) 10 mg PO HS PRN PRN Reason: FOR SLEEP Zolpidem Tartrate (Ambien) 5 mg PO HS PRN PRN Reason: SLEEP Assessment and Plan - Plan 32 yo s/p at 39w0d 1. PPD #2: AF, VSS, continue routine care, d/c home - male , s/p circumcision,
== END 2018-04-13 10:49 | disposition home or self-care (01) | DRG 807 ==
LOC: H2E 22:21 → H1EA 04-11 15:39
PROVIDERS: ADMIT Obstetrics & Gynecology; ATTEND Obstetrics & Gynecology
CPT/HCPCS: 59025; 81001; 82948; 82962; 85025; 86900; 86901; 90707; 90715; J0131; J2540; J2590; J7120